=== PATIENT | female | born 1945 | race Caucasian/White ===

== ENCOUNTER 2023-07-20 18:12 | Emergency (ER) | payer OTHER ==
[2023-07-20 18:25] VITALS: RESP 18; BMI 21.7
[2023-07-20] MEDS ORDERED: SODIUM CHLORIDE 1,000 ML IV STA (19:35)
[2023-07-20] MEDS ORDERED: PROCHLORPERAZINE INJECTION 10 MG/2 ML VIAL IVPB ONE (19:37)
[2023-07-20] MEDS ORDERED: DEXAMETHASONE SOD PHOSPHATE 20 MG/5 ML VIAL IVPB ONE (20:07)
[2023-07-20] MEDS ORDERED: DEXAMETHASONE SOD PHOSPHATE 4 MG/1 ML VIAL ONE (20:32)
[2023-07-20] MEDS ORDERED: PROCHLORPERAZINE INJECTION 10 MG/2 ML VIAL ONE (20:33)
[2023-07-20] MEDS ORDERED: levETIRAcetam 500 MG/5 ML INJECTION VIAL IVPB ONE (20:36)
[2023-07-20] MEDS ORDERED: PIPERACILLIN/TAZOB 3.375 GM 3.375 GM/50 ML BAG IVPB ONE (20:36)
[2023-07-20 20:44] LABS: BASO % 0.3 % (0-2.0); EOS % 0.1 % (0-4.5); HEMATOCRIT 36.7 % (32.4-45.2); HEMOGLOBIN 12.5 GM/dL (10.7-15.3); LYMPH % 31.5 % (8-40); MCH 31.8 pg (25.7-33.7); MEAN CELL VOLUME 93.4 fl (80-96); MEAN PLT VOLUME 7.2 fl (7.5-11.1); MONO % 3.1 % (3.8-10.2); PLATELET COUNT 253 10^3/uL (134-434); RBC 3.92 M/mm3 (3.60-5.2); WHITE BLOOD COUNT 8.3 K/mm3 (4.0-10.0)
[2023-07-20 20:54] LABS: POTASSIUM 3.9 mmol/L (3.5-5.1)
[2023-07-20 20:58] VITALS: BP 144/76; PULSE 77; TEMP 98
[2023-07-20 20:58] LABS: ALBUMIN 4.1 g/dl (3.4-5.0); CALCIUM 9.7 mg/dL (8.5-10.1)
[2023-07-20 20:59] LABS: BLOOD UREA NITROGEN 19.7 mg/dL (7-18)
[2023-07-20 21:02] LABS: CREATININE 0.6 mg/dL (0.55-1.3)
[2023-07-20 21:03] LABS: BILIRUBIN,TOTAL 0.5 mg/dL (0.2-1)
== END 2023-07-20 21:59 | disposition home or self-care (01) ==
LOC: JER 18:12
PROC: 3E033GC Introduction of Other Therapeutic Substance into Peripheral Vein, Percutaneous Approach (ICD-10-PCS; principal; 2023-07-20)
PROC: 3E033GC Introduction of Other Therapeutic Substance into Peripheral Vein, Percutaneous Approach (ICD-10-PCS; 2023-07-20)
PROC: 3E033GC Introduction of Other Therapeutic Substance into Peripheral Vein, Percutaneous Approach (ICD-10-PCS; 2023-07-20)
PROC: 3E0337Z Introduction of Electrolytic and Water Balance Substance into Peripheral Vein, Percutaneous Approach (ICD-10-PCS; 2023-07-20)
DX: R11.2 Nausea with vomiting, unspecified (principal); R51.9 Headache, unspecified; G43.909 Migraine, unspecified, not intractable, without status migrainosus; Z20.822 Contact with and (suspected) exposure to COVID-19
CPT/HCPCS: 0241U-QW; 36415; 71045-TC-FY; 80053; 82550; 84484; 85025; 96361; 96374; 96375; 99284-25